=== PATIENT | male | born 1980 | race Caucasian/White ===

== ENCOUNTER 2016-03-18 17:39 | Emergency (ER) | payer SELFPAY ==
[~2016-03-18] VITALS: Ht 175.3 cm; Wt 61.5 kg
[~2016-03-18 17:39] MED LIST: IBUP600T26 PO
[2016-03-18 17:49] VITALS: BP 142/78; PULSE 76; RESP 18; TEMP 98.2; O2SAT 98
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
[2016-03-18 18:32] VITALS: O2SAT 98
--- NOTE | 2016-03-18 19:26 | RADHPO ---
EXAM DATE/TIME: 03/18/2016 18:27 [facility] COMPARISON: No previous studies available for comparison. INDICATIONS : Shortness of breath. MEDICAL HISTORY : Unobtainable SURGICAL HISTORY : Unobtainable ENCOUNTER: Initial ACUITY: 1 day PAIN SCORE: 0/10 LOCATION: Bilateral chest FINDINGS: The lungs are clear without infiltrate, nodule, or mass. There is no appreciable pleural effusion fo r technique. Heart and mediastinum are unremarkable. CONCLUSION: No acute cardiopulmonary disease. Tonia Batista MD on March 18, 2016 at 19:24 Board Certified Radiologist. This report was verified electronically.
--- NOTE | 2016-03-18 19:29 | RADHPO ---
EXAM DATE/TIME: 03/18/2016 18:34 [facility] COMPARISON: HAND RIGHT COMPLETE ([id number]), May 01, 2015, 17:04. INDICATIONS : Right hand pain. MEDICAL HISTORY : Unobtainable SURGICAL HISTORY : Unobtainable ENCOUNTER: Initial ACUITY: 1 day PAIN SCORE: 7/10 LOCATION: Right upper extremity FINDINGS: Multiple radiopaque densities are again seen involving the second proximal phalanx and soft tissues o f the third distal phalanx. These have not changed. There are however a couple of tiny speck-like den sities involving the fifth metacarpophalangeal joint outside the bony structures not present previous ly. The exact etiology is not certain. There is no acute fracture. CONCLUSION: No evidence for acute fracture a couple of punctate densities are present involving the fifth metacar pophalangeal joint outside the bony structures of uncertain etiology. Tonia Batista MD on March 18, 2016 at 19:25 Board Certified Radiologist. This report was verified electronically.
--- NOTE | 2016-03-18 19:30 | RADHPO ---
EXAM DATE/TIME: 03/18/2016 18:37 [facility] COMPARISON: No previous studies available for comparison. INDICATIONS : Left hand pain. MEDICAL HISTORY : Unobtainable SURGICAL HISTORY : Unobtainable ENCOUNTER: Initial ACUITY: 1 day PAIN SCORE: 7/10 LOCATION: Left upper extremity FINDINGS: No definite fractures, or dislocations are identified. No definite lytic or sclerotic lesion is seen . CONCLUSION: Unremarkable study. Tonia Batista MD on March 18, 2016 at 19:28 Board Certified Radiologist. This report was verified electronically.
[2016-03-18 19:31] VITALS: BP 138/72; PULSE 85; RESP 16; O2SAT 99
--- NOTE | 2016-03-18 19:31 | RADHPO ---
EXAM DATE/TIME: 03/18/2016 18:40 [facility] COMPARISON: No previous studies available for comparison. INDICATIONS : Left elbow pain. MEDICAL HISTORY : Unobtainable SURGICAL HISTORY : Unobtainable ENCOUNTER: Initial ACUITY: 1 day PAIN SCORE: 7/10 LOCATION: Left upper extremity FINDINGS: No definite fractures, or dislocations are identified. No definite lytic or sclerotic lesion is seen . The joint spaces are well maintained. Side plate and multiple screws traverse the distal humerus. There may be slight swelling in the soft tissues adjacent to the olecranon. CONCLUSION: No definite fracture is seen for technique. Tonia Batista MD on March 18, 2016 at 19:29 Board Certified Radiologist. This report was verified electronically.
[2016-03-18 19:33] LABS: AUTOMATED NEUTROPHIL # 2.9 TH/MM3 (1.8-7.7); BASOPHIL % 0.6 % (0.0-2.0); EOSINOPHIL # 0.1 TH/MM3 (0-0.4); HEMATOCRIT 46.5 % (39.0-51.0); HEMO FLAGS DIFF FINAL; LYMPH % 48.7 % (9.0-44.0); LYMPHOCYTE # 3.5 TH/MM3 (1.0-4.8); MEAN CELL VOLUME 100.2 FL (80.0-100.0); MEAN CORPUSCULAR HEMOGLOBIN 33.7 PG (27.0-34.0); MEAN CORPUSCULAR HGB CONC 33.6 % (32.0-36.0); MONO % 9.3 % (0.0-8.0); NEUT % 39.4 % (16.0-70.0); PLATELET COUNT 234 TH/MM3 (150-450); RED BLOOD COUNT 4.64 MIL/MM3 (4.50-5.90); RED CELL DISTRIBUTION WIDTH 12.3 % (11.6-17.2); WHITE BLOOD COUNT 7.2 TH/MM3 (4.0-11.0)
--- NOTE | 2016-03-18 19:34 | RADHPO ---
EXAM DATE/TIME: 03/18/2016 18:46 [facility] COMPARISON: FOOT RIGHT LIMITED ([id number]), June 22, 2015, 19:02. FOOT RIGHT COMPLETE ([id number]), July 06, 2015, 13:58. INDICATIONS : Right foot pain. MEDICAL HISTORY : Unobtainable SURGICAL HISTORY : Unobtainable ENCOUNTER: Initial ACUITY: 1 day PAIN SCORE: 2/10 LOCATION: Right foot FINDINGS: There is a crushing fracture of the fourth distal phalanx which was present previously and not healed . The fourth proximal phalangeal fracture and the fractures of the first and third metatarsal bones i dentified previously have healed. 5-6 mm calcification has developed adjacent to the first interphala ngeal joint in the soft tissues since the prior examination. CONCLUSION: The fourth distal phalangeal crushing fracture has not healed, however the other fractures seen previ ously have healed with the area of calcification in the soft tissues adjacent to the first interphala ngeal joint which has developed since the prior examination. This is probably dystrophic calcificatio ns or myositis ossificans. Tonia Batista MD on March 18, 2016 at 19:30 Board Certified Radiologist. This report was verified electronically.
--- NOTE | 2016-03-18 19:35 | RADHPO ---
EXAM DATE/TIME: 03/18/2016 18:49 [facility] COMPARISON: No previous studies available for comparison. INDICATIONS : Left foot pain. MEDICAL HISTORY : Unobtainable SURGICAL HISTORY : Unobtainable ENCOUNTER: Initial ACUITY: 1 day PAIN SCORE: 2/10 LOCATION: Left foot FINDINGS: No definite fractures, or dislocations are identified. No definite lytic or sclerotic lesion is seen . The joint spaces are well maintained. CONCLUSION: Unremarkable study. Tonia Batista MD on March 18, 2016 at 19:33 Board Certified Radiologist. This report was verified electronically.
--- NOTE | 2016-03-18 19:36 | RADHPO ---
EXAM DATE/TIME: 03/18/2016 18:51 [facility] COMPARISON: No previous studies available for comparison. INDICATIONS : Left hip pain. MEDICAL HISTORY : Unobtainable SURGICAL HISTORY : Unobtainable ENCOUNTER: Initial ACUITY: 1 day PAIN SCORE: 4/10 LOCATION: Left pelvis FINDINGS: No definite fractures, or dislocations are identified. No definite lytic or sclerotic lesion is seen . The joint spaces are well maintained. CONCLUSION: Unremarkable study. Tonia Batista MD on March 18, 2016 at 19:34 Board Certified Radiologist. This report was verified electronically.
[2016-03-18 19:38] LABS: CHLORIDE 109 MEQ/L (98-107); SODIUM (NA) 145 MEQ/L (136-145)
--- NOTE | 2016-03-18 19:39 | RADHPO ---
EXAM DATE/TIME: 03/18/2016 19:03 [facility] COMPARISON: CT BRAIN W/O CONTRAST, January 29, 2016, 16:00. INDICATIONS : Fall. ETOH. Right sided head and neck trauma. RADIATION DOSE: 62.72 CTDIvol (mGy) MEDICAL HISTORY : Hepatitis C. Cerebrovascular disease. SURGICAL HISTORY : None. ENCOUNTER: Initial ACUITY: 1 day PAIN SCALE: 7/10 LOCATION: Right cranial TECHNIQUE: Multiple contiguous axial images were obtained of the head. Using automated exposure control and adj ustment of the mA and/or kV according to patient size, radiation dose was kept as low as reasonably a chievable to obtain optimal diagnostic quality images. FINDINGS: There is no evidence for intracranial hemorrhage, mass effect, mass lesions, edema, or extra-axial fl uid collections. The visualized bony structures appear intact. The ventricles are normal size for t he patient's age. There are no signs of acute infarction for technique. CONCLUSION: Unremarkable study. Tonia Batista MD on March 18, 2016 at 19:36 Board Certified Radiologist. This report was verified electronically.
[2016-03-18 19:42] LABS: ANION GAP 8 MEQ/L (5-15); BICARBONATE 28.5 MEQ/L (21.0-32.0); BLOOD UREA NITROGEN 8 MG/DL (7-18)
--- NOTE | 2016-03-18 19:42 | RADHPO ---
EXAM DATE/TIME: 03/18/2016 19:03 [facility] COMPARISON: CT CERVICAL SPINE W/O CONTRAST, June 22, 2015, 19:26. INDICATIONS : Fall. ETOH. Right sided neck trauma. RADIATION DOSE: 25.87 CTDIvol (mGy) MEDICAL HISTORY : Cerebrovascular disease. Hepatitis C. SURGICAL HISTORY : None. ENCOUNTER: Initial ACUITY: 1 day PAIN SCALE: 7/10 LOCATION: Right neck TECHNIQUE: Volumetric scanning of the cervical spine was performed. Multiplanar reconstructions i n the sagittal, coronal and oblique axial planes were performed. Using automated exposure control a nd adjustment of the mA and/or kV according to patient size, radiation dose was kept as low as reason ably achievable to obtain optimal diagnostic quality images. FINDINGS: No significant subluxation or soft tissue swelling is seen. No definite fracture is seen for techniqu e. C2-C3: No appreciable compromised to the thecal sac, exiting nerve roots are seen. The neural bailee dimitris are patent bilaterally. No appreciable thecal sac stenosis is seen. C3-C4: No appreciable compromised to the thecal sac, exiting nerve roots are seen. The neural bailee dimitris are patent bilaterally. No appreciable thecal sac stenosis is seen. C4-C5: No appreciable compromised to the thecal sac, exiting nerve roots are seen. The neural bailee dimitris are patent bilaterally. No appreciable thecal sac stenosis is seen. C5-C6: No appreciable compromised to the thecal sac, exiting nerve roots are seen. The neural bailee dimitris are patent bilaterally. No appreciable thecal sac stenosis is seen. C6-C7: No appreciable compromised to the thecal sac, exiting nerve roots are seen. The neural bailee dimitris are patent bilaterally. No appreciable thecal sac stenosis is seen. C7-T1: No appreciable compromised to the thecal sac, exiting nerve roots are seen. The neural bailee dimitris are patent bilaterally. No appreciable thecal sac stenosis is seen CONCLUSION: Unremarkable study. Tonia Batista MD on March 18, 2016 at 19:38 Board Certified Radiologist. This report was verified electronically.
[2016-03-18 19:44] LABS: APTT (PATIENT) 27.3 SEC (24.3-30.1); INTERNATIONAL NORMALIZED RATIO 0.9 RATIO; PROTHROMBIN TIME - PATIENT 9.6 SEC (9.8-11.6)
--- NOTE | 2016-03-18 19:44 | RADHPO ---
EXAM DATE/TIME: 03/18/2016 19:03 [facility] COMPARISON: No previous studies available for comparison. INDICATIONS : Fall. ETOH. Right sided facial trauma. RADIATION DOSE: 25.82 CTDIvol (mGy) MEDICAL HISTORY : Hepatitis C. Cerebrovascular disease. SURGICAL HISTORY : None. ENCOUNTER: Initial ACUITY: 1 day PAIN SCORE: 8/10 LOCATION: Right facial TECHNIQUE: Volumetric scanning of the facial bones was performed. Using automated exposure control and adjustme nt of the mA and/or kV according to patient size, radiation dose was kept as low as reasonably achiev able to obtain optimal diagnostic quality images. FINDINGS: No definite fractures, or dislocations are identified. No definite lytic or sclerotic lesion is seen . There is cerumen in bilateral external auditory canals. CONCLUSION: No definite fracture is seen for technique. Tonia Batista MD on March 18, 2016 at 19:41 Board Certified Radiologist. This report was verified electronically.
[2016-03-18 19:45] LABS: ALT (GPT) 139 U/L (12-78); AST (GOT) 114 U/L (15-37); GLOMERULAR FILTRATION RATE 111 ML/MIN (>89)
[2016-03-18 19:47] LABS: TOTAL BILIRUBIN ADULT 0.2 MG/DL (0.2-1.0)
[2016-03-18 19:48] LABS: ALKALINE PHOSPHATASE 122 U/L (45-117)
[2016-03-18] MEDS ORDERED: KETOROLAC TROMETHAMINE 30 MG/ML (IVP) VIAL IV PUSH ONE (20:15)
[2016-03-18 20:28] VITALS: BP 120/62; PULSE 78; RESP 16; O2SAT 99
== END 2016-03-18 21:06 | disposition home or self-care (01) ==
LOC: PHED 17:39
DX: S09.90XA Unspecified injury of head, initial encounter (principal); T14.8 Other injury of unspecified body region; F10.120 Alcohol abuse with intoxication, uncomplicated; M79.641 Pain in right hand; M79.642 Pain in left hand; M25.552 Pain in left hip; M25.522 Pain in left elbow; Y90.8 Blood alcohol level of 240 mg/100 ml or more; V19.9XXA Pedal cyclist (driver) (passenger) injured in unspecified traffic accident, initial encounter; Y93.55 Activity, bike riding
CPT/HCPCS: 70450; 70486; 71010; 72125; 73080; 73130; 73502; 73630; 80053; 80320; 85025; 85610; 85730; 96374; 99284; J1885

== ENCOUNTER 2016-10-04 00:08 | Emergency (ER) | payer SELFPAY ==
[~2016-10-04] VITALS: Ht 165.1 cm; Wt 55.0 kg
[2016-10-04 00:07] VITALS: O2SAT 64
[2016-10-04] MEDS ORDERED: EPINEPHrine HCL (1:10,000) 1 MG/10 ML SYRINGE IV ONE (00:09)
[2016-10-04 00:15] VITALS: O2SAT 64
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
[2016-10-04 00:35] VITALS: RESP 16
== END 2016-10-04 03:30 | disposition expired ==
LOC: NEPE 00:08 → EDBD 00:08 → MERGE 00:08 → NEPI 03:30
DX: I46.9 Cardiac arrest, cause unspecified (principal); S01.81XA Laceration without foreign body of other part of head, initial encounter; S80.812A Abrasion, left lower leg, initial encounter
CPT/HCPCS: 31500; 92950; 99285; J0171